=== PATIENT | female | born 1995 | race Caucasian/White ===

== ENCOUNTER 2018-01-13 11:09 | Inpatient (IN) ==
[2018-01-13] MEDS ORDERED: HYDROmorphone PF Inj 2 MG/ML Vial ONE (11:24)
[2018-01-13] MEDS ORDERED: Succinylcholine Inj 100 MG/5 ML Syringe IV.PUSH ONE (12:00)
[2018-01-13] MEDS ORDERED: Glycopyrrolate Inj 1 MG/5 ML Syringe IV.PUSH ONE (12:00)
[2018-01-13] MEDS ORDERED: Lidocaine PF 1% Inj 5 ML Syringe INFILTRATN ONE (12:00)
[2018-01-13] MEDS ORDERED: Ketorolac Inj 30 MG/ML (IVP) Vial IV.PUSH ONE (12:00)
[2018-01-13] MEDS ORDERED: Metoprolol Inj 5 MG/5 ML Vial IV.PUSH ONE (12:00)
[2018-01-13] MEDS ORDERED: Bupivacaine/Epinephrine Inj 0.25% 50 ML Vial ONE (12:34)
[2018-01-13] MEDS ORDERED: Metoprolol Tartrate 25 MG Tablet PO SCH (12:45)
[2018-01-13] MEDS ORDERED: Chlorhexidine Gluconate 2% 1 Pack (2 Cloths) TOPICAL SCH (12:45)
[2018-01-13] MEDS ORDERED: Sodium Chlor 0.9% Inj 500 ML IV.SIG SCH (13:00)
[2018-01-13] MEDS ORDERED: ceFAZolin 2 GM Premix Inj 2 GM/50 ML PIGGYBACK IV.SIG ONE (13:03)
[2018-01-13 13:05] LABS: Baso # (Auto) 0.1 th/mm3 (0.0-0.2); Baso % (Auto) 0.7 % (0.0-2.0); Eos % (Auto) 0.4 % (0.0-4.0); Hematocrit 38.2 % (35.0-46.0); Hemoglobin 13.2 gm/dL (11.6-15.3); Lymph # (Auto) 2.3 th/mm3 (1.0-4.8); Lymph % (Auto) 28.9 % (9.0-44.0); Mean Corpuscular HGB Conc 34.5 % (32.0-36.0); Mean Corpuscular Hemoglobin 28.6 pg (27.0-34.0); Mean Platelet Volume 8.8 fL (7.0-11.0); Mono # (Auto) 0.7 th/mm3 (0.0-0.9); Mono % (Auto) 8.6 % (0.0-8.0); Neut # (Auto) 4.8 th/mm3 (1.8-7.7); Neut % (Auto) 61.4 % (16.0-70.0); Platelet Count 273 th/mm3 (150-450); White Blood Count 7.8 th/mm3 (4.0-11.0)
[2018-01-13 13:31] LABS: Albumin 3.7 g/dL (3.4-5.0); Calcium 8.7 mg/dL (8.5-10.1); Carbon Dioxide 25.7 meq/L (21.0-32.0); Potassium 3.7 meq/L (3.5-5.1)
[2018-01-13 13:33] LABS: Total Protein 7.8 g/dL (6.4-8.2)
[2018-01-13] MEDS ORDERED: Sugammadex Inj 200 MG/2 ML Vial IV.PUSH ONE (15:02)
[2018-01-13] MEDS ORDERED: Bisacodyl 10 MG Supp RECTAL PRN (15:45)
[2018-01-13] MEDS ORDERED: Promethazine 25 MG Supp RECTAL PRN (15:45)
[2018-01-13] MEDS ORDERED: Post-op Orders (for Pharmacy) OTHER ONE (15:45)
--- NOTE | 2018-01-13 15:45 | P.OP ---
- Preoperative Diagnosis (1) Gastro-esophageal reflux - Postoperative Diagnosis (1) Gastro-esophageal reflux Date of procedure: 01/13/18 Procedure: robotic asst lap alesha fundoplication with hiatal hernia repair Anesthesia: GETA Surgeon: Manny Kline MD Party Host/Hostess: Lui Sanders Estimated blood loss (mL): 10 Pathology: none sent Operation and Findings: 50f bougie, floppy wrap, small hh
[2018-01-13] MEDS ORDERED: fentaNYL Citrate Inj 100 MCG/2 ML Ampul ONE (16:15)
[2018-01-13] MEDS ORDERED: *morphine SULFATE 4 MG/ML PERIprocedure ONLY ONE ×3 (16:30→18:01)
[2018-01-13] MEDS: Sod Chloride 0.9% Inj 1,000 ML IV.CONT SCH (16:51)
[2018-01-13] MEDS: Ketorolac Inj 30 MG/ML (IVP) Vial IV.PUSH SCH ×2 (18:42→22:04)
[2018-01-13] MEDS: Senna/Docusate Sodium 8.6/50 MG Tablet PO SCH (22:03)
[2018-01-13] MEDS: Morphine Inj 4 MG/ML Vial IV.PUSH PRN (23:13)
[2018-01-14] MEDS: Sod Chloride 0.9% Inj 1,000 ML IV.CONT SCH ×4 (04:57→22:01)
[2018-01-14] MEDS: Ketorolac Inj 30 MG/ML (IVP) Vial IV.PUSH SCH ×4 (05:02→21:59)
[2018-01-14] MEDS: Senna/Docusate Sodium 8.6/50 MG Tablet PO SCH ×3 (08:40→20:01)
[2018-01-14 09:37] VITALS: RESP 16
--- NOTE | 2018-01-14 09:41 | P.PNGS ---
Subjective Patient reports: pain is less (, chest tightness), no flatus (no nausea) Physical Exam Vital signs: Vital Signs 01/13/18 12:31 01/13/18 16:00 01/13/18 16:15 Temperature 98.2 F 97.4 F L Pulse Rate 77 80 83 Respiratory Rate 20 14 14 Blood Pressure 129/66 112/59 L 109/58 L Pulse Oximetry 97 100 99 01/13/18 16:30 01/13/18 16:45 01/13/18 17:00 Temperature Pulse Rate 82 82 79 Respiratory Rate 15 14 17 Blood Pressure 106/61 111/65 112/56 L Pulse Oximetry 99 99 99 01/13/18 17:15 01/13/18 17:45 01/13/18 18:00 Temperature 98.0 F Pulse Rate 77 80 90 Respiratory Rate 15 15 15 Blood Pressure 110/56 L 107/57 L 100/53 L Pulse Oximetry 99 99 99 01/13/18 20:00 01/14/18 00:00 01/14/18 04:00 Temperature 98.2 F 98.3 F 97.3 F L Pulse Rate 74 85 80 Respiratory Rate 21 20 18 Blood Pressure 109/51 L 107/54 L 117/58 L Pulse Oximetry 99 98 97 01/14/18 04:02 01/14/18 08:00 Temperature 97.9 F Pulse Rate 72 Respiratory Rate 18 16 Blood Pressure 117/58 L Pulse Oximetry 97 Intake & Output 01/13/18 01/14/18 01/14/18 18:59 06:59 18:59 Intake Total 1999 4550 / 4550 Output Total 160 / 160 1700 / 1700 Balance 1840 / 1840 2850 / 2850 Weight 76.2 kg 78.2 kg Intake: IV 2550 / 2550 NS Inj 1,000 ML @ 100 mls/hr IV 1000 / 1000 .CONT .Q10H G[facility]ETT Rx#:[id number] Ancef Inj 1,000 MG In NS Inj 200 / 200 100 ML @ 200 mls/hr IV.SIG Q8H [facility]T Rx#:[id number] Flagyl 500 MG Inj 100 ML @ 200 200 / 200 mls/hr IV.SIG Q8H G[facility]ETT Rx#: [id number] Oral 1999 Anesthesia Amount 1999 Output: Urine 1700 / 1700 Estimated Blood Loss 10 / 10 Urine Amount (Catheter) 150 / 150 Indwelling Urethral Catheter 150 / 150 Other: Weight On Admission 76.2 kg - Constitutional no acute distress - Routine Respiratory Exam Present: CTA bilaterally - Routine Cardiovascular Exam Present: RRR, S1, S2 - Routine Abdominal Exam Present: soft (incisional tenderness) - Urinary Catheter Management Indwelling Urethral Catheter Cath placed during this visit: yes, but has since been removed by the nurse Reason for continuing: Decision to DC catheter Insertion date: 01/13/18 Insertion time: 13:16 Removal date: 01/13/18 Removal time: 15:36 Assessment and Plan - Plan POD 1 Robotic asst alesha fundoplication, Doing well PLAN clears check esophagram cxr IS ordered increase pain meds to po dvt ppx encourage oob possible d/c 24-48 hours
--- NOTE | 2018-01-14 10:28 | XR ---
EXAM DATE: 01/14/2018 10:25 AM EDT AGE/SEX: 22 years / Female INDICATIONS: Chest pain and short of breath. CLINICAL DATA: This is the patient's initial encounter. Patient reports that signs and symptoms have been present for 2 days and indicates a pain score of 8/10. MEDICAL/SURGICAL HISTORY: . GERD, Hiatal hernia . alesha fundoplication and hiatal hernia surg reid COMPARISON: No prior exams available for comparison. FINDINGS: A single AP view of the chest demonstrates the lungs to be symmetrically aerated without evidence of mass, infiltrate or effusion. The cardiomediastinal contours are unremarkable. Osseous structures a re intact. CONCLUSION: No acute cardiopulmonary disease. Electronically signed by: Alan Parikh MD 01/14/2018 10:26 AM EDT
--- NOTE | 2018-01-14 11:01 | FL ---
EXAM DATE: 01/14/2018 10:32 AM EDT AGE/SEX: 22 years / Female INDICATIONS: S/p Ronni fundoplication and hiatal hernia surgery CLINICAL DATA: This is the patient's initial encounter. Patient reports that signs and symptoms have been present for 2 days and indicates a pain score of 10/10. MEDICAL/SURGICAL HISTORY: None. None. COMPARISON: [facility], CT ABDOMEN AND PELVIS W AND W/O CONTRAST, 07/25/2017. . FLUORO TIME: 2.1 IMAGE COUNT: 7 FINDINGS: Preliminary film is unremarkable. Examination of the swallowing function demonstrates no evidence of aspiration or penetration. The chidi dy of the esophagus is unremarkable. No reflux or hiatal hernia is identified. Examination of the stomach a Ronni defect at the superior aspect of the stomach. The gastric volume appears normal and there are no findings of ulceration. The mucosal pattern appears normal. Contrast enters the stomach without difficulty. CONCLUSION: Negative examination. Electronically signed by: Kev Galarza MD 01/14/2018 10:59 AM EDT
[2018-01-14] MEDS ORDERED: Diatrizoate Meglum/Diatrizoate Sod Liq 120 ML Bottle (for RAD diag) PO ONE (11:12)
[2018-01-14] MEDS: Morphine Inj 4 MG/ML Vial IV.PUSH PRN ×2 (12:39→22:00)
[2018-01-14] MEDS: Enoxaparin Inj 30 MG/0.3 ML Syringe SQ SCH (15:31)
--- NOTE | 2018-01-14 20:19 | MP ---
cc: Manny Kline MD DATE OF OPERATION: 01/13/2018 PREOPERATIVE DIAGNOSIS: Gastroesophageal reflux. POSTOPERATIVE DIAGNOSIS: Gastroesophageal reflux, small hiatal hernia. PROCEDURE: Robotic-assisted laparoscopic Ronni fundoplication with hiatal hernia repair. SURGEON: Manny Kline MD ORDER CALLER: Lui Sanders MD ANESTHESIA: GETA. ESTIMATED BLOOD LOSS: 10 mL DRAINS: None. COMPLICATIONS: None WOUND CLASSIFICATION: Clean. FINDINGS: A small hiatal hernia. Good hemostasis. PATHOLOGY SPECIMENS: None. INDICATIONS FOR PROCEDURE: The patient is a 22-year-old female who presents with acute reflux. She was noted to have Case study showing a DeMeester score of 22 and had symptomatic reflux on proton pump inhibitors. This started in May and continued getting worse. Multiple workup with CT scans and endoscopy as well. Decision was made after discussion in detail of procedure for robotic-assisted laparoscopic Ronni fundoplication. I discussed with the patient in detail that this would greatly improve her reflux; however, the patient did have episodic abdominal pain, which unlikely to be relieved by surgical intervention. DETAILS OF PROCEDURE: The patient was taken to the operating suite, placed in a supine position. She was prepped and draped in the usual sterile fashion after induction of general endotracheal anesthesia. Brief timeout stating correct procedure, surgical site and patient. We were all in agreement with this. Attention was first directed 18 cm below the xiphoid. A small stab kindra incision was made after injection of local anesthetic with an 11 blade. The Optiview Visiport 5 mm was used to enter the abdomen safely. On cursory inspection, no evidence of injury. The right upper quadrant 5 mm liver retractor port was placed under direct vision. Next, the 5 mm port at the umbilicus was changed out for a 12 mm port. Two of the robotic ports were placed, 10 cm laterally on either direction and 7 cm cephalad. Local anesthetic injected. Stab kindra incision made. These were done under direct view. The last port was placed 5 mm for assist port in the left lower quadrant. The patient was placed in reverse Trendelenburg. The sutures, Carlos drain, Ray-Taran were all placed inside the abdomen including 3-0 silk sutures and three 2-0 Surgidac sutures. The robot console was docked and the Cattier and Harmonic scalpel were used. I broke scrub and went to the console and began to work on my dissection, starting with separation of the pars flaccida of the hepatic gastric ligament and doing a circumferential dissection of the hiatus. This was done in order to identify the right and left brittaney. Dissection underneath the posterior of the esophagus was done. [place] placed and grasped in order to assist in retraction. Small hiatal hernia noted, was dissected out, reduced and a [id number] silk suture was placed for primary closure. The short gastrics were then taken down with the Harmonic scalpel. The superior portion of the fundus was grasped and brought posteriorly. A shoeshine technique was done in order to see that the stomach sat comfortably without undue tension. A 36 bougie was placed prior to hiatal hernia repair. This was dilated up to a 50 size bougie. Hiatal hernia repair was repaired around 50-Amharic bougie. The Ronni wrap was also wrapped around this 50-Amharic bougie. Three 2-0 Surgidac sutures were done in interrupted fashion in order to facilitate the wrap. The wrap noted to be sitting comfortably in the intra-abdominal cavity. There was no undue tension. Next, the robot was then undocked and the sutures were removed. Hemostasis obtained. The 12 mm port was closed with a 0 Vicryl and the other ports were closed with 4-0 Monocryl subcuticular sutures followed by a sterile dressings and Steri-Strips. All lap and instrument counts were correct. No complications. The patient tolerated the procedure well, was extubated and taken stable to the PACU. MD TAMIE Donahue/josefina , 05:49 PM , 05:59 PM
[2018-01-15] MEDS: Ketorolac Inj 30 MG/ML (IVP) Vial IV.PUSH SCH ×3 (04:21→17:25)
[2018-01-15] MEDS: Morphine Inj 4 MG/ML Vial IV.PUSH PRN ×2 (05:24→11:41)
[2018-01-15] MEDS: Sod Chloride 0.9% Inj 1,000 ML IV.CONT SCH ×2 (05:25→15:22)
[2018-01-15] MEDS: Senna/Docusate Sodium 8.6/50 MG Tablet PO SCH (09:53)
--- NOTE | 2018-01-15 11:35 | P.PNGS ---
Subjective Patient reports: no new complaints (pain similar to yesterday) Physical Exam Vital signs: Vital Signs 01/14/18 12:00 01/14/18 16:00 01/14/18 20:00 Temperature 97.9 F 97.3 F L 97.9 F Pulse Rate 52 L 66 58 L Respiratory Rate 16 16 16 Blood Pressure 119/57 L 114/54 L 116/55 L Pulse Oximetry 98 97 97 01/15/18 00:00 01/15/18 08:00 Temperature 97.7 F 97.7 F Pulse Rate 70 71 Respiratory Rate 16 16 Blood Pressure 106/53 L 109/54 L Pulse Oximetry 96 96 Intake & Output 01/14/18 01/15/18 01/15/18 18:59 06:59 18:59 Intake Total 3200 / 3200 1900 / 1900 Output Total 1000 / 1000 Balance 2200 / 2200 1900 / 1900 Weight 78 kg Intake: IV 3200 / 3200 1000 / 1000 NS Inj 1,000 ML @ 100 mls/hr IV 2100 / 2100 1000 / 1000 .CONT .Q10H [facility] Rx#:[id number] Ancef Inj 1,000 MG In NS Inj 100 / 100 100 ML @ 200 mls/hr IV.SIG Q8H [facility] Rx#:[id number] Flagyl 500 MG Inj 100 ML @ 200 1000 / 1000 mls/hr IV.SIG Q8H [facility]T Rx#: [id number] Oral 900 / 900 Output: Urine 1000 / 1000 Other: # Voids 5 3 # Bowel Movements 0 - Routine Respiratory Exam Present: CTA bilaterally - Routine Cardiovascular Exam Present: RRR - Routine Abdominal Exam Present: soft (incisional tenderness) - Urinary Catheter Management Indwelling Urethral Catheter Cath placed during this visit: yes, but has since been removed by the nurse Reason for continuing: Decision to DC catheter Insertion date: 01/13/18 Insertion time: 13:16 Removal date: 01/13/18 Removal time: 15:36 Assessment and Plan - Plan POD 2 Robotic asst alesha fundoplication, Doing well esophagram negative PLAN clears advance to full diet add levsin IS ordered increase pain meds to po dvt ppx encourage oob d/c today
[2018-01-15 12:33] VITALS: BP 115/54; PULSE 53; TEMP 97.4; O2SAT 97
[2018-01-15] MEDS ORDERED: Hyoscyamine Liq Drops 0.125 MG/ML 15 ML Bottle SL SCH (14:00)
[2018-01-15] MEDS: Enoxaparin Inj 30 MG/0.3 ML Syringe SQ SCH (14:36)
== END 2018-01-15 18:29 | disposition home or self-care (01) ==
LOC: HOR 11:09 → HSDI 15:45 → N07 18:27
PROVIDERS: ADMIT Surgery; ATTEND Surgery